=== PATIENT | male | born 1940 | race Caucasian/White ===

== ENCOUNTER 2016-11-01 16:45 | Inpatient (IN) | payer MEDICARE ==
[~2016-11-01] VITALS: Ht 175.3 cm; Wt 96.2 kg
[~2016-11-01 16:45] MED LIST: ATOR20TA PO; DOCU250C75 PO; HYDR25TA PO; LISI-651 PO; OMEP20CA4 PO; [UNRECOGNIZED DRUG - CODE] PO
[2016-11-01 20:00] VITALS: BP 146/90
[2016-11-01] MEDS ORDERED: NON FORMULARY PATIENT HOME MED EA XX SCH (20:45)
[2016-11-01] MEDS: ATORVASTATIN CALCIUM 20MG TABLET PO SCH (22:58)
[2016-11-01] MEDS: AMLODIPINE 5MG TABLET PO SCH (22:58)
[2016-11-02 00:44] VITALS: BP 146/90
[2016-11-02] MEDS: ACETYLCYSTEINE 200MG/ML 20% VIAL 4ML INH SCH ×6 (01:08→20:08)
[2016-11-02] MEDS: IPRATROPIUM/ALBUTEROL 0.5-3(2.5)MG/3ML NEB HHN SCH ×6 (01:08→20:08)
[2016-11-02] MEDS: CARBAMAZEPINE 100MG TABLET CHEW PO SCH ×2 (07:15→17:04)
[2016-11-02] MEDS: ZINC OXIDE 20% OINT 30GM TOP SCH ×3 (07:16→20:45)
[2016-11-02 07:17] LABS: HEMOGLOBIN 12.3 g/dL (14.0-18.0); MEAN CORPUSCULAR HEMOGLOBIN 29.8 pg (28.0-32.0); MEAN CORPUSCULAR HGB CONC 34.2 g/dL (31.0-37.0); MEAN CORPUSCULAR VOLUME 87.2 fL (80.0-94.0); PLATELET 177 x1000/uL (130-400); RED BLOOD CELL COUNT 4.13 mill/uL (4.7-6.1); WHITE BLOOD COUNT 8.9 x1000/uL (4.5-11.0)
[2016-11-02 07:40] LABS: ALANINE AMINOTRANSFERASE 17 IU/L (13-61); ANION GAP 12; CALCIUM 8.8 mg/dL (8.5-10.1); CARBON DIOXIDE 29 mEq/L (21-32); CHLORIDE 104 mEq/L (98-107); INDEX HEMOLYSI 1 (1-3); INDEX ICTERIC 1 (1-4); INDEX LIPEMIC 1 (1-3); UREA NITROGEN BLOOD 16 mg/dL (7-21); eGFR 45 mL/min (>60)
[2016-11-02 08:00] VITALS: BP 128/83
[2016-11-02 08:30] LABS: PREALBUMIN 26.5 mg/dL (20.0-40.0)
[2016-11-02] MEDS ORDERED: DOCUSATE SODIUM 100MG CAPSULE PO SCH (09:00)
[2016-11-02] MEDS: DOCUSATE SODIUM 100MG CAPSULE PO SCH (09:17)
[2016-11-02] MEDS: AMLODIPINE 5MG TABLET PO SCH ×2 (09:17→21:43)
[2016-11-02] MEDS: MULTIVITAMINS,THER W-MINERALS TABLET PO SCH (09:17)
[2016-11-02] MEDS: FOLIC ACID 1MG TABLET PO SCH (09:17)
[2016-11-02] MEDS: FINASTERIDE 5MG TABLET PO SCH (09:17)
[2016-11-02] MEDS: ASPIRIN 81MG TABLET PO SCH (09:18)
[2016-11-02] MEDS ORDERED: CARVEDILOL 3.125 MG TABLET PO SCH (13:30)
[2016-11-02 20:00] VITALS: BP 149/84
[2016-11-02] MEDS: ATORVASTATIN CALCIUM 20MG TABLET PO SCH (21:43)
[2016-11-03] MEDS: IPRATROPIUM/ALBUTEROL 0.5-3(2.5)MG/3ML NEB HHN SCH ×6 (01:07→20:59)
[2016-11-03] MEDS: ACETYLCYSTEINE 200MG/ML 20% VIAL 4ML INH SCH ×6 (01:07→20:59)
[2016-11-03] MEDS: CARBAMAZEPINE 100MG TABLET CHEW PO SCH ×2 (06:04→16:55)
[2016-11-03 08:00] VITALS: BP 135/93
[2016-11-03] MEDS: ZINC OXIDE 20% OINT 30GM TOP SCH ×2 (08:47→22:15)
[2016-11-03] MEDS: ASPIRIN 81MG TABLET PO SCH (08:47)
[2016-11-03] MEDS: MULTIVITAMINS,THER W-MINERALS TABLET PO SCH (08:47)
[2016-11-03] MEDS: FINASTERIDE 5MG TABLET PO SCH (08:47)
[2016-11-03] MEDS: DOCUSATE SODIUM 100MG CAPSULE PO SCH (08:47)
[2016-11-03] MEDS: FOLIC ACID 1MG TABLET PO SCH (08:47)
[2016-11-03] MEDS: AMLODIPINE 5MG TABLET PO SCH ×2 (08:48→22:17)
[2016-11-03] MEDS: ENOXAPARIN 40MG/0.4ML SYR SUBCUT SCH (11:35)
[2016-11-03] MEDS: LISINOPRIL 10MG TABLET PO SCH (13:36)
[2016-11-03] MEDS: FUROSEMIDE 20MG TABLET PO SCH (16:55)
[2016-11-03 20:00] VITALS: BP 155/102
[2016-11-03] MEDS: ATORVASTATIN CALCIUM 20MG TABLET PO SCH (22:15)
[2016-11-04] MEDS: ACETYLCYSTEINE 200MG/ML 20% VIAL 4ML INH SCH ×7 (04:00→23:13)
[2016-11-04] MEDS: IPRATROPIUM/ALBUTEROL 0.5-3(2.5)MG/3ML NEB HHN SCH ×7 (04:00→23:12)
[2016-11-04 06:34] LABS: HEMATOCRIT. 38.1 % (42.0-52.0); HEMOGLOBIN. 12.8 g/dL (14.0-18.0); MEAN CORPUSCULAR HEMOGLOBIN 29.1 pg (28.0-32.0); MEAN CORPUSCULAR HGB CONC 33.7 g/dL (31.0-37.0); MEAN CORPUSCULAR VOLUME 86.4 fL (80.0-94.0); MEAN PLATELET VOLUME 8.7 fl (7.4-10.4); PLATELET 191 x1000/uL (130-400); RED BLOOD CELL COUNT 4.41 mill/uL (4.7-6.1); RED CELL DISTRIBUTION WIDTH 13.8 % (11.6-14.6); WHITE BLOOD COUNT 14.8 x1000/uL (4.5-11.0)
[2016-11-04 06:40] LABS: FERRITIN 171 ng/mL (22-322)
[2016-11-04] MEDS: FUROSEMIDE 20MG TABLET PO SCH ×2 (07:01→16:49)
[2016-11-04] MEDS: CARBAMAZEPINE 100MG TABLET CHEW PO SCH ×2 (07:01→16:49)
[2016-11-04 07:32] LABS: CALCIUM 8.7 mg/dL (8.5-10.1); PHOSPHORUS 3.3 mg/dL (2.5-4.9)
[2016-11-04 07:32] LABS: DIFFERENTIAL COMMENT 1
[2016-11-04 07:33] LABS: THYROID STIMULATING HORMONE 5.1 uIU/mL (0.36-3.74)
[2016-11-04 08:00] VITALS: BP 144/92
[2016-11-04 08:12] LABS: INDEX HEMOLYSI 1 (1-3)
[2016-11-04] MEDS: MULTIVITAMINS,THER W-MINERALS TABLET PO SCH (08:25)
[2016-11-04] MEDS: LISINOPRIL 10MG TABLET PO SCH (08:25)
[2016-11-04] MEDS: FOLIC ACID 1MG TABLET PO SCH (08:25)
[2016-11-04] MEDS: AMLODIPINE 5MG TABLET PO SCH ×2 (08:25→22:32)
[2016-11-04] MEDS: ASPIRIN 81MG TABLET PO SCH (08:25)
[2016-11-04] MEDS: FINASTERIDE 5MG TABLET PO SCH (08:25)
[2016-11-04] MEDS: ENOXAPARIN 40MG/0.4ML SYR SUBCUT SCH (08:25)
[2016-11-04] MEDS: DOCUSATE SODIUM 100MG CAPSULE PO SCH (08:25)
[2016-11-04 08:27] LABS: VITAMIN B12 SERUM 751 pg/mL (211-911)
[2016-11-04 08:30] LABS: FOLIC ACID (FOLATE) SERUM > 20.00 ng/mL (>5.38)
[2016-11-04 10:18] LABS: CLARITY URINE CLEAR (CLEAR); COLOR URINE YELLOW (YELLOW); GLUCOSE URINE NEGATIVE (NEGATIVE); KETONES URINE NEGATIVE (NEGATIVE); LEUKOCYTE ESTERASE URINE NEGATIVE (NEGATIVE); NITRITE URINE NEGATIVE (NEGATIVE); OCCULT BLOOD URINE NEGATIVE (NEGATIVE); PH URINE 6.5 (4.5-8.0); PROTEIN URINE 2+ (NEGATIVE); SPECIFIC GRAVITY URINE 1.012 (1.005-1.030); UROBILINOGEN URINE 0.2 E.U./dL (0.2-1.0)
[2016-11-04 10:42] LABS: MUCUS URINE TRACE /lpf (NONE/TRACE); SQUAMOUS EPITHELIAL CELL URINE RARE /lpf (RARE/1+)
[2016-11-04 10:44] LABS: BACTERIA URINE TRACE
[2016-11-04 10:45] LABS: RBC URINE 0-2 /hpf (0-2); WBC URINE 0-2 /hpf (0-2)
[2016-11-04 10:51] LABS: PLATELET ESTIMATE NORMAL
[2016-11-04] MEDS: ZINC OXIDE 20% OINT 30GM TOP SCH ×2 (11:26→22:31)
[2016-11-04] MEDS: FERROUS SULFATE 325MG TABLET PO SCH ×2 (13:00→16:49)
[2016-11-04] MEDS: CARBAMAZEPINE 200MG TABLET PO SCH (17:19)
[2016-11-04] MEDS ORDERED: VANCOMYCIN 1,500 MG in DEXT 5% WATER 250 ML IV SCH (19:30)
[2016-11-04 20:00] VITALS: BP 138/91
[2016-11-04] MEDS: CEFEPIME 1,000 MG in DEXTROSE 5% WATER 50 ML IV SCH (20:19)
[2016-11-04] MEDS: ATORVASTATIN CALCIUM 20MG TABLET PO SCH (22:31)
[2016-11-05] MEDS: ACETYLCYSTEINE 200MG/ML 20% VIAL 4ML INH SCH ×5 (04:09→20:04)
[2016-11-05] MEDS: IPRATROPIUM/ALBUTEROL 0.5-3(2.5)MG/3ML NEB HHN SCH ×5 (04:12→20:03)
[2016-11-05 06:34] LABS: HEMATOCRIT. 35.1 % (42.0-52.0); MEAN CORPUSCULAR HEMOGLOBIN 29.4 pg (28.0-32.0); MEAN CORPUSCULAR VOLUME 86.3 fL (80.0-94.0); MEAN PLATELET VOLUME 8.8 fl (7.4-10.4); PLATELET 158 x1000/uL (130-400); RED BLOOD CELL COUNT 4.07 mill/uL (4.7-6.1); RED CELL DISTRIBUTION WIDTH 13.9 % (11.6-14.6); WHITE BLOOD COUNT 7.8 x1000/uL (4.5-11.0)
[2016-11-05] MEDS: FUROSEMIDE 20MG TABLET PO SCH ×2 (07:14→17:33)
[2016-11-05] MEDS: CARBAMAZEPINE 200MG TABLET PO SCH ×2 (07:14→17:33)
[2016-11-05 07:15] LABS: DIFFERENTIAL COMMENT 1
[2016-11-05 08:00] VITALS: BP 133/89
[2016-11-05] MEDS ORDERED: VANCOMYCIN 500 MG PREMIX 100 ML IV SCH (08:00)
[2016-11-05 08:04] LABS: CALCIUM 8.5 mg/dL (8.5-10.1)
[2016-11-05] MEDS: MULTIVITAMINS,THER W-MINERALS TABLET PO SCH (09:06)
[2016-11-05] MEDS: FINASTERIDE 5MG TABLET PO SCH (09:06)
[2016-11-05] MEDS: ASPIRIN 81MG TABLET PO SCH (09:07)
[2016-11-05] MEDS: AMLODIPINE 5MG TABLET PO SCH ×2 (09:07→22:06)
[2016-11-05] MEDS: DOCUSATE SODIUM 100MG CAPSULE PO SCH (09:07)
[2016-11-05] MEDS: FOLIC ACID 1MG TABLET PO SCH (09:07)
[2016-11-05] MEDS: FERROUS SULFATE 325MG TABLET PO SCH ×3 (09:07→17:26)
[2016-11-05] MEDS: LISINOPRIL 10MG TABLET PO SCH (09:08)
[2016-11-05] MEDS: ZINC OXIDE 20% OINT 30GM TOP SCH ×2 (09:11→20:45)
[2016-11-05] MEDS: ENOXAPARIN 40MG/0.4ML SYR SUBCUT SCH (09:27)
[2016-11-05 10:43] LABS: ATYPICAL LYMPHOCYTES 1; PLATELET ESTIMATE NORMAL
[2016-11-05] MEDS: CEFEPIME 1,000 MG in DEXTROSE 5% WATER 50 ML IV SCH ×2 (12:22→17:27)
[2016-11-05 20:00] VITALS: BP 137/83
[2016-11-05] MEDS: ATORVASTATIN CALCIUM 20MG TABLET PO SCH (22:06)
[2016-11-06] MEDS: ACETYLCYSTEINE 200MG/ML 20% VIAL 4ML INH SCH ×7 (00:26→21:37)
[2016-11-06] MEDS: IPRATROPIUM/ALBUTEROL 0.5-3(2.5)MG/3ML NEB HHN SCH ×6 (00:26→21:37)
[2016-11-06] MEDS: FUROSEMIDE 20MG TABLET PO SCH ×2 (06:07→17:59)
[2016-11-06] MEDS: CEFEPIME 1,000 MG in DEXTROSE 5% WATER 50 ML IV SCH ×2 (06:07→18:01)
[2016-11-06] MEDS: CARBAMAZEPINE 200MG TABLET PO SCH ×2 (06:07→17:59)
[2016-11-06 06:26] LABS: BASOPHILS % 0.5 % (0.0-2.0); HEMOGLOBIN. 12.3 g/dL (14.0-18.0); LYMPHOCYTES % 9.6 % (20.0-50.0); MEAN CORPUSCULAR HEMOGLOBIN 29.3 pg (28.0-32.0); MEAN CORPUSCULAR HGB CONC 34.3 g/dL (31.0-37.0); MEAN CORPUSCULAR VOLUME 85.6 fL (80.0-94.0); MEAN PLATELET VOLUME 8.6 fl (7.4-10.4); MONOCYTES % 13.3 % (2.0-8.0); NEUTROPHILS % 70.6 % (40.0-76.0); PLATELET 154 x1000/uL (130-400); RED CELL DISTRIBUTION WIDTH 13.9 % (11.6-14.6)
[2016-11-06] MEDS: VANCOMYCIN 1 G PREMIX 200 ML IV SCH (07:38)
[2016-11-06 08:00] VITALS: BP 132/66
[2016-11-06] MEDS: DOCUSATE SODIUM 100MG CAPSULE PO SCH (08:58)
[2016-11-06] MEDS: FOLIC ACID 1MG TABLET PO SCH (08:58)
[2016-11-06] MEDS: FERROUS SULFATE 325MG TABLET PO SCH ×3 (08:58→18:02)
[2016-11-06] MEDS: ENOXAPARIN 40MG/0.4ML SYR SUBCUT SCH (08:58)
[2016-11-06] MEDS: FINASTERIDE 5MG TABLET PO SCH (08:58)
[2016-11-06] MEDS: MULTIVITAMINS,THER W-MINERALS TABLET PO SCH (08:58)
[2016-11-06] MEDS: ASPIRIN 81MG TABLET PO SCH (08:59)
[2016-11-06] MEDS: LISINOPRIL 10MG TABLET PO SCH (08:59)
[2016-11-06] MEDS: ZINC OXIDE 20% OINT 30GM TOP SCH ×2 (09:00→20:37)
[2016-11-06] MEDS: AMLODIPINE 5MG TABLET PO SCH ×2 (09:01→20:37)
[2016-11-06 09:43] LABS: CALCIUM 8.9 mg/dL (8.5-10.1)
[2016-11-06] MEDS: LEVOTHYROXINE SODIUM 25MCG TABLET PO SCH (11:52)
[2016-11-06 20:00] VITALS: BP 127/84
[2016-11-06] MEDS: ATORVASTATIN CALCIUM 20MG TABLET PO SCH (20:37)
[2016-11-07] MEDS: IPRATROPIUM/ALBUTEROL 0.5-3(2.5)MG/3ML NEB HHN SCH ×7 (01:03→20:47)
[2016-11-07] MEDS: ACETYLCYSTEINE 200MG/ML 20% VIAL 4ML INH SCH ×7 (04:37→20:48)
[2016-11-07] MEDS: CEFEPIME 1,000 MG in DEXTROSE 5% WATER 50 ML IV SCH (05:03)
[2016-11-07] MEDS: VANCOMYCIN 1 G PREMIX 200 ML IV SCH (05:57)
[2016-11-07] MEDS: FUROSEMIDE 20MG TABLET PO SCH ×2 (06:00→17:21)
[2016-11-07] MEDS: CARBAMAZEPINE 200MG TABLET PO SCH ×2 (06:00→17:21)
[2016-11-07] MEDS: LEVOTHYROXINE SODIUM 25MCG TABLET PO SCH (06:00)
[2016-11-07 07:00] VITALS: BP 129/76
[2016-11-07] MEDS: MULTIVITAMINS,THER W-MINERALS TABLET PO SCH (08:27)
[2016-11-07] MEDS: ASPIRIN 81MG TABLET PO SCH (08:28)
[2016-11-07] MEDS: FOLIC ACID 1MG TABLET PO SCH (08:28)
[2016-11-07] MEDS: LISINOPRIL 10MG TABLET PO SCH (08:28)
[2016-11-07] MEDS: FERROUS SULFATE 325MG TABLET PO SCH ×3 (08:28→17:21)
[2016-11-07] MEDS: DOCUSATE SODIUM 100MG CAPSULE PO SCH (08:28)
[2016-11-07] MEDS: FINASTERIDE 5MG TABLET PO SCH (08:29)
[2016-11-07] MEDS: ENOXAPARIN 40MG/0.4ML SYR SUBCUT SCH (08:31)
[2016-11-07] MEDS: AMLODIPINE 5MG TABLET PO SCH ×2 (08:31→20:53)
[2016-11-07] MEDS: ZINC OXIDE 20% OINT 30GM TOP SCH ×2 (08:52→20:53)
[2016-11-07 13:16] LABS: 25-HYDROXY VITAMIN D3 38 ng/mL (.)
[2016-11-07 20:00] VITALS: BP 124/78
[2016-11-07] MEDS: ATORVASTATIN CALCIUM 20MG TABLET PO SCH (20:53)
[2016-11-08] MEDS: IPRATROPIUM/ALBUTEROL 0.5-3(2.5)MG/3ML NEB HHN SCH ×6 (00:21→22:14)
[2016-11-08] MEDS: CEFEPIME 1,000 MG in DEXTROSE 5% WATER 50 ML IV SCH (04:15)
[2016-11-08] MEDS: CARBAMAZEPINE 200MG TABLET PO SCH ×2 (06:07→18:12)
[2016-11-08] MEDS: LEVOTHYROXINE SODIUM 25MCG TABLET PO SCH (06:07)
[2016-11-08] MEDS: FUROSEMIDE 20MG TABLET PO SCH ×2 (06:07→18:12)
[2016-11-08 06:53] LABS: CALCIUM 8.8 mg/dL (8.5-10.1)
[2016-11-08 06:54] LABS: BASOPHILS % 0.3 % (0.0-2.0); EOSINOPHILS % 4.8 % (0.0-5.0); HEMATOCRIT. 35.3 % (42.0-52.0); HEMOGLOBIN. 11.9 g/dL (14.0-18.0); LYMPHOCYTES % 9.4 % (20.0-50.0); MEAN CORPUSCULAR HEMOGLOBIN 28.8 pg (28.0-32.0); MEAN CORPUSCULAR HGB CONC 33.6 g/dL (31.0-37.0); MEAN CORPUSCULAR VOLUME 85.7 fL (80.0-94.0); MEAN PLATELET VOLUME 8.9 fl (7.4-10.4); MONOCYTES % 12.2 % (2.0-8.0); NEUTROPHILS % 73.3 % (40.0-76.0); PLATELET 159 x1000/uL (130-400); RED BLOOD CELL COUNT 4.11 mill/uL (4.7-6.1); RED CELL DISTRIBUTION WIDTH 13.6 % (11.6-14.6); WHITE BLOOD COUNT 8.4 x1000/uL (4.5-11.0)
[2016-11-08 08:00] VITALS: BP 135/90
[2016-11-08] MEDS: ACETYLCYSTEINE 200MG/ML 20% VIAL 4ML INH SCH ×3 (08:00→22:14)
[2016-11-08] MEDS: LISINOPRIL 10MG TABLET PO SCH (09:00)
[2016-11-08] MEDS: DOCUSATE SODIUM 100MG CAPSULE PO SCH (09:11)
[2016-11-08] MEDS: AMLODIPINE 5MG TABLET PO SCH ×2 (09:11→20:49)
[2016-11-08] MEDS: FERROUS SULFATE 325MG TABLET PO SCH ×3 (09:11→18:12)
[2016-11-08] MEDS: MULTIVITAMINS,THER W-MINERALS TABLET PO SCH (09:11)
[2016-11-08] MEDS: FOLIC ACID 1MG TABLET PO SCH (09:11)
[2016-11-08] MEDS: ASPIRIN 81MG TABLET PO SCH (09:12)
[2016-11-08] MEDS: FINASTERIDE 5MG TABLET PO SCH (09:12)
[2016-11-08] MEDS: ENOXAPARIN 40MG/0.4ML SYR SUBCUT SCH (09:13)
[2016-11-08] MEDS: ZINC OXIDE 20% OINT 30GM TOP SCH ×2 (09:23→20:50)
[2016-11-08] MEDS ORDERED: POTASSIUM CHLORIDE 20MEQ TABLET SR PO SCH (14:30)
[2016-11-08 19:00] VITALS: BP 136/88
[2016-11-08] MEDS: ATORVASTATIN CALCIUM 20MG TABLET PO SCH (20:49)
[2016-11-09] MEDS: ACETYLCYSTEINE 200MG/ML 20% VIAL 4ML INH SCH ×6 (00:38→21:03)
[2016-11-09] MEDS: IPRATROPIUM/ALBUTEROL 0.5-3(2.5)MG/3ML NEB HHN SCH ×6 (00:39→21:01)
[2016-11-09] MEDS: CEFEPIME 1,000 MG in DEXTROSE 5% WATER 50 ML IV SCH (04:30)
[2016-11-09] MEDS: FUROSEMIDE 20MG TABLET PO SCH (05:48)
[2016-11-09] MEDS: CARBAMAZEPINE 200MG TABLET PO SCH ×2 (05:48→16:59)
[2016-11-09] MEDS: LEVOTHYROXINE SODIUM 25MCG TABLET PO SCH (05:48)
[2016-11-09 08:00] VITALS: BP 121/76
[2016-11-09] MEDS: FINASTERIDE 5MG TABLET PO SCH (08:37)
[2016-11-09] MEDS: FERROUS SULFATE 325MG TABLET PO SCH ×3 (08:37→16:45)
[2016-11-09] MEDS: DOCUSATE SODIUM 100MG CAPSULE PO SCH (08:37)
[2016-11-09] MEDS: LISINOPRIL 10MG TABLET PO SCH (08:37)
[2016-11-09] MEDS: ASPIRIN 81MG TABLET PO SCH (08:37)
[2016-11-09] MEDS: ENOXAPARIN 40MG/0.4ML SYR SUBCUT SCH (08:38)
[2016-11-09] MEDS: AMLODIPINE 5MG TABLET PO SCH (08:38)
[2016-11-09] MEDS: FOLIC ACID 1MG TABLET PO SCH (08:39)
[2016-11-09] MEDS: MULTIVITAMINS,THER W-MINERALS TABLET PO SCH (08:39)
[2016-11-09] MEDS: ZINC OXIDE 20% OINT 30GM TOP SCH ×2 (08:50→21:43)
[2016-11-09 20:00] VITALS: BP 128/81
[2016-11-09] MEDS: ATORVASTATIN CALCIUM 20MG TABLET PO SCH (21:41)
[2016-11-09] MEDS: CARVEDILOL 3.125 MG TABLET PO SCH (21:41)
[2016-11-10] MEDS: ACETYLCYSTEINE 200MG/ML 20% VIAL 4ML INH SCH ×5 (01:22→16:43)
[2016-11-10] MEDS: IPRATROPIUM/ALBUTEROL 0.5-3(2.5)MG/3ML NEB HHN SCH ×5 (01:26→16:43)
[2016-11-10] MEDS: CEFEPIME 1,000 MG in DEXTROSE 5% WATER 50 ML IV SCH (04:34)
[2016-11-10] MEDS: LEVOTHYROXINE SODIUM 25MCG TABLET PO SCH (05:54)
[2016-11-10] MEDS: CARBAMAZEPINE 200MG TABLET PO SCH ×2 (05:54→17:29)
[2016-11-10 07:15] LABS: CALCIUM 8.7 mg/dL (8.5-10.1)
[2016-11-10 07:18] LABS: BASOPHILS % 0.5 % (0.0-2.0); EOSINOPHILS % 3.7 % (0.0-5.0); HEMATOCRIT. 34.2 % (42.0-52.0); HEMOGLOBIN. 11.7 g/dL (14.0-18.0); LYMPHOCYTES % 8.2 % (20.0-50.0); MEAN CORPUSCULAR HEMOGLOBIN 29.3 pg (28.0-32.0); MEAN CORPUSCULAR HGB CONC 34.3 g/dL (31.0-37.0); MEAN CORPUSCULAR VOLUME 85.4 fL (80.0-94.0); MEAN PLATELET VOLUME 9.2 fl (7.4-10.4); MONOCYTES % 10.3 % (2.0-8.0); NEUTROPHILS % 77.3 % (40.0-76.0); PLATELET 164 x1000/uL (130-400); RED BLOOD CELL COUNT 4.01 mill/uL (4.7-6.1); RED CELL DISTRIBUTION WIDTH 13.8 % (11.6-14.6); WHITE BLOOD COUNT 9.7 x1000/uL (4.5-11.0)
[2016-11-10 08:00] VITALS: BP 129/82
[2016-11-10] MEDS: FOLIC ACID 1MG TABLET PO SCH (09:20)
[2016-11-10] MEDS: FERROUS SULFATE 325MG TABLET PO SCH ×3 (09:20→17:29)
[2016-11-10] MEDS: DOCUSATE SODIUM 100MG CAPSULE PO SCH (09:20)
[2016-11-10] MEDS: MULTIVITAMINS,THER W-MINERALS TABLET PO SCH (09:20)
[2016-11-10] MEDS: ASPIRIN 81MG TABLET PO SCH (09:20)
[2016-11-10] MEDS: CARVEDILOL 3.125 MG TABLET PO SCH ×2 (09:21→22:02)
[2016-11-10] MEDS: ENOXAPARIN 40MG/0.4ML SYR SUBCUT SCH (09:21)
[2016-11-10] MEDS: FINASTERIDE 5MG TABLET PO SCH (09:21)
[2016-11-10] MEDS: ZINC OXIDE 20% OINT 30GM TOP SCH ×2 (09:22→22:03)
[2016-11-10] MEDS ORDERED: POTASSIUM CHLORIDE 20MEQ TABLET SR PO SCH (15:15)
[2016-11-10 20:00] VITALS: BP 149/85
[2016-11-10] MEDS: ATORVASTATIN CALCIUM 20MG TABLET PO SCH (22:02)
[2016-11-11] MEDS: ACETYLCYSTEINE 200MG/ML 20% VIAL 4ML INH SCH ×5 (05:01→21:20)
[2016-11-11] MEDS: IPRATROPIUM/ALBUTEROL 0.5-3(2.5)MG/3ML NEB HHN SCH ×5 (05:02→21:20)
[2016-11-11] MEDS: CARBAMAZEPINE 200MG TABLET PO SCH ×2 (05:41→18:04)
[2016-11-11] MEDS: LEVOTHYROXINE SODIUM 25MCG TABLET PO SCH (05:41)
[2016-11-11 08:00] VITALS: BP 138/83
[2016-11-11] MEDS: ENOXAPARIN 40MG/0.4ML SYR SUBCUT SCH (09:08)
[2016-11-11] MEDS: ZINC OXIDE 20% OINT 30GM TOP SCH ×2 (09:08→22:06)
[2016-11-11] MEDS: ASPIRIN 81MG TABLET PO SCH (09:08)
[2016-11-11] MEDS: FERROUS SULFATE 325MG TABLET PO SCH ×3 (09:09→18:04)
[2016-11-11] MEDS: FOLIC ACID 1MG TABLET PO SCH (09:09)
[2016-11-11] MEDS: DOCUSATE SODIUM 100MG CAPSULE PO SCH (09:09)
[2016-11-11] MEDS: CARVEDILOL 3.125 MG TABLET PO SCH ×2 (09:09→22:07)
[2016-11-11] MEDS: MULTIVITAMINS,THER W-MINERALS TABLET PO SCH (09:09)
[2016-11-11] MEDS: FINASTERIDE 5MG TABLET PO SCH (09:09)
[2016-11-11] MEDS ORDERED: POTASSIUM CHLORIDE 10MEQ TABLET SR PO NR (13:30)
[2016-11-11 20:00] VITALS: BP 143/88
[2016-11-11] MEDS: ATORVASTATIN CALCIUM 20MG TABLET PO SCH (22:06)
[2016-11-12] MEDS: IPRATROPIUM/ALBUTEROL 0.5-3(2.5)MG/3ML NEB HHN SCH ×6 (00:51→21:39)
[2016-11-12] MEDS: ACETYLCYSTEINE 200MG/ML 20% VIAL 4ML INH SCH ×2 (00:53→04:35)
[2016-11-12] MEDS: CARBAMAZEPINE 200MG TABLET PO SCH ×2 (06:02→18:09)
[2016-11-12] MEDS: LEVOTHYROXINE SODIUM 25MCG TABLET PO SCH (06:03)
[2016-11-12 06:40] LABS: BASOPHILS % 0.7 % (0.0-2.0); EOSINOPHILS % 5.3 % (0.0-5.0); HEMATOCRIT. 34.2 % (42.0-52.0); HEMOGLOBIN. 11.7 g/dL (14.0-18.0); LYMPHOCYTES % 11.2 % (20.0-50.0); MEAN CORPUSCULAR HEMOGLOBIN 29.3 pg (28.0-32.0); MEAN CORPUSCULAR HGB CONC 34.1 g/dL (31.0-37.0); MEAN CORPUSCULAR VOLUME 85.8 fL (80.0-94.0); MEAN PLATELET VOLUME 9.7 fl (7.4-10.4); MONOCYTES % 11.2 % (2.0-8.0); NEUTROPHILS % 71.6 % (40.0-76.0); PLATELET 164 x1000/uL (130-400); RED BLOOD CELL COUNT 3.99 mill/uL (4.7-6.1); RED CELL DISTRIBUTION WIDTH 13.9 % (11.6-14.6); WHITE BLOOD COUNT 8.8 x1000/uL (4.5-11.0)
[2016-11-12 06:46] LABS: CALCIUM 9.1 mg/dL (8.5-10.1)
[2016-11-12 08:00] VITALS: BP 140/81
[2016-11-12] MEDS: ENOXAPARIN 40MG/0.4ML SYR SUBCUT SCH (08:31)
[2016-11-12] MEDS: FOLIC ACID 1MG TABLET PO SCH (08:31)
[2016-11-12] MEDS: ASPIRIN 81MG TABLET PO SCH (08:31)
[2016-11-12] MEDS: FINASTERIDE 5MG TABLET PO SCH (08:31)
[2016-11-12] MEDS: FERROUS SULFATE 325MG TABLET PO SCH ×3 (08:31→18:09)
[2016-11-12] MEDS: MULTIVITAMINS,THER W-MINERALS TABLET PO SCH (08:31)
[2016-11-12] MEDS: ZINC OXIDE 20% OINT 30GM TOP SCH ×2 (08:31→20:36)
[2016-11-12] MEDS: DOCUSATE SODIUM 100MG CAPSULE PO SCH (08:31)
[2016-11-12] MEDS: CARVEDILOL 3.125 MG TABLET PO SCH ×2 (08:35→20:36)
[2016-11-12] MEDS: OMEPRAZOLE 20MG CAPSULE EXTENDED RELEASE PO SCH (09:06)
[2016-11-12] MEDS: NYSTATIN/TRIAMCIN OINT 15GM TOP SCH (18:10)
[2016-11-12 20:00] VITALS: BP 145/104
[2016-11-12] MEDS: ATORVASTATIN CALCIUM 20MG TABLET PO SCH (20:35)
[2016-11-13] MEDS: IPRATROPIUM/ALBUTEROL 0.5-3(2.5)MG/3ML NEB HHN SCH ×7 (00:41→23:54)
[2016-11-13] MEDS: OMEPRAZOLE 20MG CAPSULE EXTENDED RELEASE PO SCH (06:24)
[2016-11-13] MEDS: LEVOTHYROXINE SODIUM 25MCG TABLET PO SCH (06:24)
[2016-11-13] MEDS: CARBAMAZEPINE 200MG TABLET PO SCH ×2 (06:24→18:00)
[2016-11-13 08:00] VITALS: BP 168/94
[2016-11-13] MEDS: CARVEDILOL 3.125 MG TABLET PO SCH ×2 (09:19→21:19)
[2016-11-13] MEDS: FINASTERIDE 5MG TABLET PO SCH (09:19)
[2016-11-13] MEDS: NYSTATIN/TRIAMCIN OINT 15GM TOP SCH ×2 (09:20→18:01)
[2016-11-13] MEDS: FERROUS SULFATE 325MG TABLET PO SCH ×3 (09:35→18:00)
[2016-11-13] MEDS: ASPIRIN 81MG TABLET PO SCH (09:35)
[2016-11-13] MEDS: MULTIVITAMINS,THER W-MINERALS TABLET PO SCH (09:36)
[2016-11-13] MEDS: FOLIC ACID 1MG TABLET PO SCH (09:36)
[2016-11-13] MEDS: ZINC OXIDE 20% OINT 30GM TOP SCH ×2 (09:36→21:19)
[2016-11-13] MEDS: ENOXAPARIN 40MG/0.4ML SYR SUBCUT SCH (09:38)
[2016-11-13] MEDS: DOCUSATE SODIUM 100MG CAPSULE PO SCH (09:38)
[2016-11-13] MEDS: TAMSULOSIN HCL 0.4MG SR CAPSULE PO SCH (13:07)
[2016-11-13] MEDS: BETHANECHOL CHLORIDE 25 MG TABLET PO SCH ×2 (13:07→21:19)
[2016-11-13 20:00] VITALS: BP 148/90
[2016-11-13] MEDS: ATORVASTATIN CALCIUM 20MG TABLET PO SCH (21:19)
[2016-11-14] MEDS: IPRATROPIUM/ALBUTEROL 0.5-3(2.5)MG/3ML NEB HHN SCH ×4 (04:25→21:25)
[2016-11-14] MEDS: BETHANECHOL CHLORIDE 25 MG TABLET PO SCH ×3 (05:25→22:31)
[2016-11-14] MEDS: CARBAMAZEPINE 200MG TABLET PO SCH ×2 (05:25→17:46)
[2016-11-14] MEDS: LEVOTHYROXINE SODIUM 25MCG TABLET PO SCH (06:07)
[2016-11-14] MEDS: OMEPRAZOLE 20MG CAPSULE EXTENDED RELEASE PO SCH (06:07)
[2016-11-14 08:00] VITALS: BP 125/72
[2016-11-14 08:20] LABS: BASOPHILS % 0.4 % (0.0-2.0); EOSINOPHILS % 5.1 % (0.0-5.0); HEMATOCRIT. 35.3 % (42.0-52.0); HEMOGLOBIN. 12.1 g/dL (14.0-18.0); LYMPHOCYTES % 9.4 % (20.0-50.0); MEAN CORPUSCULAR HEMOGLOBIN 29.5 pg (28.0-32.0); MEAN CORPUSCULAR HGB CONC 34.3 g/dL (31.0-37.0); MEAN CORPUSCULAR VOLUME 85.9 fL (80.0-94.0); MEAN PLATELET VOLUME 9.8 fl (7.4-10.4); MONOCYTES % 12.1 % (2.0-8.0); PLATELET 154 x1000/uL (130-400); RED BLOOD CELL COUNT 4.11 mill/uL (4.7-6.1); RED CELL DISTRIBUTION WIDTH 13.9 % (11.6-14.6); WHITE BLOOD COUNT 7.9 x1000/uL (4.5-11.0)
[2016-11-14] MEDS: ZINC OXIDE 20% OINT 30GM TOP SCH ×2 (08:45→22:36)
[2016-11-14 08:52] LABS: CALCIUM 9.5 mg/dL (8.5-10.1)
[2016-11-14] MEDS: NYSTATIN/TRIAMCIN OINT 15GM TOP SCH ×2 (09:00→17:48)
[2016-11-14] MEDS: DOCUSATE SODIUM 100MG CAPSULE PO SCH (09:00)
[2016-11-14] MEDS: CARVEDILOL 3.125 MG TABLET PO SCH ×2 (09:16→22:31)
[2016-11-14] MEDS: ASPIRIN 81MG TABLET PO SCH (09:17)
[2016-11-14] MEDS: FOLIC ACID 1MG TABLET PO SCH (09:29)
[2016-11-14] MEDS: FINASTERIDE 5MG TABLET PO SCH (09:29)
[2016-11-14] MEDS: FERROUS SULFATE 325MG TABLET PO SCH ×3 (09:31→17:46)
[2016-11-14] MEDS: MULTIVITAMINS,THER W-MINERALS TABLET PO SCH (09:32)
[2016-11-14] MEDS: TAMSULOSIN HCL 0.4MG SR CAPSULE PO SCH (09:32)
[2016-11-14] MEDS: ENOXAPARIN 40MG/0.4ML SYR SUBCUT SCH (09:32)
[2016-11-14 20:00] VITALS: BP 140/84
[2016-11-14] MEDS: ATORVASTATIN CALCIUM 20MG TABLET PO SCH (22:31)
[2016-11-15] MEDS: IPRATROPIUM/ALBUTEROL 0.5-3(2.5)MG/3ML NEB HHN SCH ×6 (00:52→21:11)
[2016-11-15] MEDS: LEVOTHYROXINE SODIUM 25MCG TABLET PO SCH (06:12)
[2016-11-15] MEDS: OMEPRAZOLE 20MG CAPSULE EXTENDED RELEASE PO SCH (06:12)
[2016-11-15] MEDS: BETHANECHOL CHLORIDE 25 MG TABLET PO SCH ×3 (06:12→21:05)
[2016-11-15] MEDS: CARBAMAZEPINE 200MG TABLET PO SCH ×2 (06:12→17:58)
[2016-11-15 08:00] VITALS: BP 143/67
[2016-11-15] MEDS: ENOXAPARIN 40MG/0.4ML SYR SUBCUT SCH (09:29)
[2016-11-15] MEDS: ZINC OXIDE 20% OINT 30GM TOP SCH ×2 (09:29→21:05)
[2016-11-15] MEDS: FERROUS SULFATE 325MG TABLET PO SCH ×3 (09:29→17:58)
[2016-11-15] MEDS: NYSTATIN/TRIAMCIN OINT 15GM TOP SCH ×2 (09:29→17:59)
[2016-11-15] MEDS: DOCUSATE SODIUM 100MG CAPSULE PO SCH (09:29)
[2016-11-15] MEDS: FOLIC ACID 1MG TABLET PO SCH (09:30)
[2016-11-15] MEDS: CARVEDILOL 3.125 MG TABLET PO SCH ×2 (09:30→21:05)
[2016-11-15] MEDS: ASPIRIN 81MG TABLET PO SCH (09:30)
[2016-11-15] MEDS: FINASTERIDE 5MG TABLET PO SCH (09:30)
[2016-11-15] MEDS: MULTIVITAMINS,THER W-MINERALS TABLET PO SCH (09:30)
[2016-11-15] MEDS: TAMSULOSIN HCL 0.4MG SR CAPSULE PO SCH (10:06)
[2016-11-15 18:35] LABS: CLARITY URINE CLEAR (CLEAR); COLOR URINE YELLOW (YELLOW); GLUCOSE URINE NEGATIVE (NEGATIVE); KETONES URINE NEGATIVE (NEGATIVE); LEUKOCYTE ESTERASE URINE NEGATIVE (NEGATIVE); NITRITE URINE NEGATIVE (NEGATIVE); OCCULT BLOOD URINE NEGATIVE (NEGATIVE); PROTEIN URINE 2+ (NEGATIVE); SPECIFIC GRAVITY URINE 1.015 (1.005-1.030); UROBILINOGEN URINE 0.2 E.U./dL (0.2-1.0)
[2016-11-15 19:05] LABS: SQUAMOUS EPITHELIAL CELL URINE FEW /lpf (RARE/1+)
[2016-11-15 19:06] LABS: MUCUS URINE TRACE /lpf (NONE/TRACE)
[2016-11-15 19:07] LABS: BACTERIA URINE TRACE; RBC URINE 0-2 /hpf (0-2)
[2016-11-15 20:00] VITALS: BP 158/93
[2016-11-15] MEDS: ATORVASTATIN CALCIUM 20MG TABLET PO SCH (21:04)
[2016-11-16] MEDS: IPRATROPIUM/ALBUTEROL 0.5-3(2.5)MG/3ML NEB HHN SCH ×6 (01:07→21:03)
[2016-11-16] MEDS: BETHANECHOL CHLORIDE 25 MG TABLET PO SCH ×3 (06:22→22:33)
[2016-11-16] MEDS: CARBAMAZEPINE 200MG TABLET PO SCH ×2 (06:22→17:17)
[2016-11-16] MEDS: LEVOTHYROXINE SODIUM 25MCG TABLET PO SCH (06:22)
[2016-11-16] MEDS: OMEPRAZOLE 20MG CAPSULE EXTENDED RELEASE PO SCH (06:22)
[2016-11-16 09:00] VITALS: BP 161/95
[2016-11-16] MEDS: TAMSULOSIN HCL 0.4MG SR CAPSULE PO SCH (09:00)
[2016-11-16] MEDS: DOCUSATE SODIUM 100MG CAPSULE PO SCH (09:00)
[2016-11-16] MEDS: ENOXAPARIN 40MG/0.4ML SYR SUBCUT SCH (09:00)
[2016-11-16] MEDS: MULTIVITAMINS,THER W-MINERALS TABLET PO SCH (09:01)
[2016-11-16] MEDS: CARVEDILOL 3.125 MG TABLET PO SCH ×2 (09:01→22:33)
[2016-11-16] MEDS: ASPIRIN 81MG TABLET PO SCH (09:01)
[2016-11-16] MEDS: FOLIC ACID 1MG TABLET PO SCH (09:01)
[2016-11-16] MEDS: FERROUS SULFATE 325MG TABLET PO SCH ×3 (09:01→17:17)
[2016-11-16] MEDS: FINASTERIDE 5MG TABLET PO SCH (09:01)
[2016-11-16] MEDS: NYSTATIN/TRIAMCIN OINT 15GM TOP SCH ×2 (09:02→17:19)
[2016-11-16] MEDS: ZINC OXIDE 20% OINT 30GM TOP SCH ×2 (09:02→22:36)
[2016-11-16 20:00] VITALS: BP 153/94
[2016-11-16] MEDS: ATORVASTATIN CALCIUM 20MG TABLET PO SCH (21:00)
[2016-11-17] MEDS: IPRATROPIUM/ALBUTEROL 0.5-3(2.5)MG/3ML NEB HHN SCH ×6 (01:09→21:10)
[2016-11-17] MEDS: CARBAMAZEPINE 200MG TABLET PO SCH ×2 (06:16→17:21)
[2016-11-17] MEDS: BETHANECHOL CHLORIDE 25 MG TABLET PO SCH ×3 (06:16→22:32)
[2016-11-17] MEDS: LEVOTHYROXINE SODIUM 25MCG TABLET PO SCH (06:16)
[2016-11-17 07:01] LABS: BASOPHILS % 0.7 % (0.0-2.0); EOSINOPHILS % 4.3 % (0.0-5.0); HEMOGLOBIN. 12.1 g/dL (14.0-18.0); LYMPHOCYTES % 10.5 % (20.0-50.0); MEAN CORPUSCULAR HEMOGLOBIN 29.1 pg (28.0-32.0); MEAN CORPUSCULAR HGB CONC 33.7 g/dL (31.0-37.0); MEAN CORPUSCULAR VOLUME 86.5 fL (80.0-94.0); MEAN PLATELET VOLUME 10.4 fl (7.4-10.4); MONOCYTES % 9.7 % (2.0-8.0); NEUTROPHILS % 74.8 % (40.0-76.0); PLATELET 156 x1000/uL (130-400); RED BLOOD CELL COUNT 4.17 mill/uL (4.7-6.1); RED CELL DISTRIBUTION WIDTH 13.7 % (11.6-14.6); WHITE BLOOD COUNT 8.2 x1000/uL (4.5-11.0)
[2016-11-17 07:20] LABS: CALCIUM 9.8 mg/dL (8.5-10.1); T4 FREE 0.82 ng/dL (0.76-1.46)
[2016-11-17 07:24] LABS: THYROID STIMULATING HORMONE 6.6 uIU/mL (0.36-3.74)
[2016-11-17 08:00] VITALS: BP 137/89
[2016-11-17] MEDS: ZINC OXIDE 20% OINT 30GM TOP SCH ×2 (09:07→22:32)
[2016-11-17] MEDS: FAMOTIDINE 20MG TABLET PO SCH ×2 (09:07→22:34)
[2016-11-17] MEDS: FOLIC ACID 1MG TABLET PO SCH (09:08)
[2016-11-17] MEDS: FINASTERIDE 5MG TABLET PO SCH (09:08)
[2016-11-17] MEDS: CARVEDILOL 3.125 MG TABLET PO SCH ×2 (09:09→22:33)
[2016-11-17] MEDS: TAMSULOSIN HCL 0.4MG SR CAPSULE PO SCH (09:09)
[2016-11-17] MEDS: ASPIRIN 81MG TABLET PO SCH (09:09)
[2016-11-17] MEDS: ENOXAPARIN 40MG/0.4ML SYR SUBCUT SCH (09:10)
[2016-11-17] MEDS: FERROUS SULFATE 325MG TABLET PO SCH ×3 (09:10→17:21)
[2016-11-17] MEDS: MULTIVITAMINS,THER W-MINERALS TABLET PO SCH (09:10)
[2016-11-17] MEDS: DOCUSATE SODIUM 100MG CAPSULE PO SCH (09:10)
[2016-11-17] MEDS: NYSTATIN/TRIAMCIN OINT 15GM TOP SCH ×2 (09:13→17:29)
[2016-11-17 20:00] VITALS: BP 127/81
[2016-11-17] MEDS: ATORVASTATIN CALCIUM 20MG TABLET PO SCH (22:32)
[2016-11-18] MEDS: IPRATROPIUM/ALBUTEROL 0.5-3(2.5)MG/3ML NEB HHN SCH ×6 (00:13→15:58)
[2016-11-18] MEDS: LEVOTHYROXINE SODIUM 25MCG TABLET PO SCH (06:31)
[2016-11-18] MEDS: BETHANECHOL CHLORIDE 25 MG TABLET PO SCH ×2 (06:31→14:40)
[2016-11-18 08:00] VITALS: BP 157/100
[2016-11-18] MEDS ORDERED: FERROUS SULFATE 325MG TABLET PO SCH (09:00)
[2016-11-18] MEDS ORDERED: CARBAMAZEPINE 200MG TABLET PO SCH ×2 (09:00→21:00)
[2016-11-18] MEDS: MULTIVITAMINS,THER W-MINERALS TABLET PO SCH (10:43)
[2016-11-18] MEDS: ASPIRIN 81MG TABLET PO SCH (10:43)
[2016-11-18] MEDS: FAMOTIDINE 20MG TABLET PO SCH (10:43)
[2016-11-18] MEDS: FOLIC ACID 1MG TABLET PO SCH (10:43)
[2016-11-18] MEDS: CARVEDILOL 3.125 MG TABLET PO SCH (10:44)
[2016-11-18] MEDS: ENOXAPARIN 40MG/0.4ML SYR SUBCUT SCH (10:44)
[2016-11-18] MEDS: DOCUSATE SODIUM 100MG CAPSULE PO SCH (10:44)
[2016-11-18] MEDS: FINASTERIDE 5MG TABLET PO SCH (10:44)
[2016-11-18] MEDS: TAMSULOSIN HCL 0.4MG SR CAPSULE PO SCH (10:44)
[2016-11-18] MEDS: ZINC OXIDE 20% OINT 30GM TOP SCH (10:45)
[2016-11-18] MEDS: NYSTATIN/TRIAMCIN OINT 15GM TOP SCH (10:46)
[2016-11-18 15:02] VITALS: BP 161/94
[2016-11-18 15:10] VITALS: BP 161/94
== END 2016-11-18 16:30 | DRG 64 ==
PROVIDERS: ADMIT Physical Medicine & Rehabilitation Spinal Cord Injury Medicine; ATTEND Specialist
DX: I63.9 Cerebral infarction, unspecified (principal); G93.40 Encephalopathy, unspecified; J18.9 Pneumonia, unspecified organism; A41.9 Sepsis, unspecified organism; I47.1 Supraventricular tachycardia; I42.9 Cardiomyopathy, unspecified; I13.0 Hypertensive heart and chronic kidney disease with heart failure and stage 1 through stage 4 chronic kidney disease, or unspecified chronic kidney disease; J98.11 Atelectasis; G81.91 Hemiplegia, unspecified affecting right dominant side; G81.14 Spastic hemiplegia affecting left nondominant side; R47.1 Dysarthria and anarthria; R13.10 Dysphagia, unspecified; L89.159 Pressure ulcer of sacral region, unspecified stage; R53.81 Other malaise; E78.5 Hyperlipidemia, unspecified; I50.9 Heart failure, unspecified; N18.3 Chronic kidney disease, stage 3 (moderate); E11.22 Type 2 diabetes mellitus with diabetic chronic kidney disease; E03.9 Hypothyroidism, unspecified; D50.9 Iron deficiency anemia, unspecified; E87.6 Hypokalemia; N30.20 Other chronic cystitis without hematuria; N40.1 Benign prostatic hyperplasia with lower urinary tract symptoms; N50.0 Atrophy of testis; R33.8 Other retention of urine; R13.0 Aphagia; Z86.2 Personal history of diseases of the blood and blood-forming organs and certain disorders involving the immune mechanism; Z95.810 Presence of automatic (implantable) cardiac defibrillator; Z82.49 Family history of ischemic heart disease and other diseases of the circulatory system; Z86.73 Personal history of transient ischemic attack (TIA), and cerebral infarction without residual deficits
CPT/HCPCS: 36415; 71010; 71020; 80048; 80053; 81001; 82306; 82550; 82607; 82728; 82746; 82962; 83036; 83540; 83550; 83690; 83735; 84100; 84134; 84153; 84403; 84439; 84443; 84630; 85025; 85027; 86376; 87040; 87070; 87086; 92523; 92610; 93005; 93923; 93970; 94640; 97110; 97112; 97163; 97167; 97530; 97535; A4565; A6261; J0692; J1650; J3370; J7040; J7060; J7608; J7620